=== PATIENT | male | born 1965 ===

== ENCOUNTER → 2025-03-11 | Emergency (ER) | payer OTHER ==
[~2025-03-11] VITALS: Ht 175.3 cm; Wt 86.2 kg
[~2025-03-11] MED LIST: DEXAMETHASONE SODIUM PHOSPHATE 4 MG/ML VIAL ONE; KETOROLAC TROMETHAMINE 60 MG VIAL IM ONE; LOSARTAN POTASS25 MG; NORFLEX100MG PO; ORPHENADRINE CITRATE 30 MG/ML AMPUL IM ONE; ORPHENADRINE CITRATE 30 MG/ML AMPUL ONE
[2025-03-11 14:29] VITALS: BP 158/84; O2SAT 98
== END | disposition home or self-care (01) ==
LOC: ER 14:24
DX: M54.2 Cervicalgia (principal); M54.89 Other dorsalgia; I10 Essential (primary) hypertension; M51.369 Other intervertebral disc degeneration, lumbar region without mention of lumbar back pain or lower extremity pain